=== PATIENT | female | born 1970 | race Caucasian/White ===

== ENCOUNTER → 2016-03-06 | Outpatient (CLI) | payer BC, OTHER ==
--- NOTE | 2016-03-06 13:17 | US ---
Left Breast Ultrasound History: Follow up probably benign nodular focus in the subareolar left breast in a patient who has u damon a benign ultrasound left breast biopsy February 2015. Technique: Longitudinal and transverse images were obtained utilizing a 15 MHz transducer. Color Dop pler evaluation is employed for assessment of vascularity. Comparison to the most recent targeted lef t breast ultrasound performed August 31, 2015. Findings: Again demonstrated is a tubular focal area beneath the left nipple. No internal flow is dem onstrated on color Doppler. The region measures 7.1 x 7.3 x 1.4 cm and is probably unchanged with pre vious size estimated at 8.5 x 6.0 x 1.8 cm. Impression: Probably benign findings, BI-RADS 2. Recommendation: Continued clinical follow up and as long as physical examination remains negative, ma mmographic screening as well as repeat targeted ultrasound suggested August 2016. A verbal report was given to the patient. [facility] will send a result letter to the patient.
== END ==
LOC: FIMAGING 12:28
PROVIDERS: ATTEND Family Medicine
DX: N63 Unspecified lump in breast (principal)

== ENCOUNTER → 2016-09-14 | Outpatient (CLI) | payer OTHER | LOC: FIMAGING 15:19 | PROVIDERS: ATTEND Family Medicine | DX: Z12.31 Encounter for screening mammogram for malignant neoplasm of breast (principal); R92.8 Other abnormal and inconclusive findings on diagnostic imaging of breast | CPT/HCPCS: G0202 ==

== ENCOUNTER → 2018-03-10 | Outpatient (CLI) | payer OTHER | LOC: FIMAGING 11:52 | PROVIDERS: ATTEND Family Medicine | DX: Z12.31 Encounter for screening mammogram for malignant neoplasm of breast (principal) ==